=== PATIENT | male | born 1995 | race Caucasian/White ===

== ENCOUNTER 2021-09-17 14:31 | Emergency (ER) | payer OTHER, SELFPAY ==
[2021-09-17 14:35] VITALS: BP 166/94; PULSE 79; RESP 16; O2SAT 100; BMI 22.1
--- NOTE | 2021-09-17 14:43 | XR_ITS ---
WS: [id number] Right hand, 3 views, 09/17/2021 Clinical Data: 5th finger injury Comparison: None. Findings: There is a flexion deformity of the right fifth finger DIP joint. There may be an avulsion fracture with a small fragment at the dorsal aspect of the right fifth finger DIP joint. The remainder of the hand is not remarkable. XR/XR hand RT min 3V* [id number] Impression: Possible small avulsion fracture of the base of the right fifth finger distal p halanx with flexion deformity.
--- NOTE | 2021-09-17 14:44 | ED_ITS ---
HPI - Wound/Laceration General: Chief Complaint: Wound/Laceration Stated Complaint: HAND LAC Time Seen by Provider: 09/17/21 14:39 History of Present Illness: Patient states while he was at work today his right hand little finger got caught between between a table on board with a [employer] chain and a pulled his little finger into the chain. Sustained laceration to fifth fingerand possibly broke. This occurred approximately hour ago. Associated symptoms: Denies chills, fever(s), nausea or vomiting Review of Systems Const: Denies: fever(s), chills or body aches Eyes: Denies: eye discomfort ENMT: Denies: throat pain Card: Denies: chest pain Resp: Denies: dyspnea GI: Denies: abdominal pain, nausea or vomiting Musc: Reports: extremity pain (Right fifth finger occurred at work today), joint pain and limited range of motion Skin/Breast: Denies: rash Neuro: Denies: headache(s) Psych: Denies: depression or suicidal ideation PFS ED PFSH: Social History Smoking and tobacco status: current every day smoker Quit status (tobacco): not considering quitting Second hand smoke exposure: Yes Alcohol intake: never Desire information about alcohol rehabilitation?: No Desire information about substance/drug rehabilitation?: No Physical Exam Const: COMMON NORMALS: no acute distress, patient oriented x3 and alert HENMT: COMMON NORMALS: normocephalic HEAD & SCALP: normocephalic Eye: COMMON NORMALS: EOMs intact bilaterally Neck/C-Spine: COMMON NORMALS: no JVD Resp: COMMON NORMALS: normal respiratory effort and No use of accessory muscles Cardio: COMMON NORMALS: no JVD GI: INSPECTION: Yes normal to inspection Extremity: COMMON NORMALS: normal to inspection and full ROM RIGHT UPPER EXTREMITY: Yes hand & digits (Laceration dorsal surface right DIP, possible mild angulation. Nail intact) Right hand and digits: Yes ROM exam (Unable to extend little finger), Yes neurovascular exam (Intact) and Yes other (Nailbed intact) Neuro: COMMON NORMALS: patient oriented x3 SENSORIUM/ORIENTATION: Yes alert Psych: COMMON NORMALS: mental status grossly normal Skin: COMMON NORMALS: no rashes or lesions noted GENERAL SKIN EXAM: no rashes or lesions noted Procedures Laceration Laceration 1: Site: hand Side (If applicable): right Size (cm): 3 Description: irregular and contaminated Depth: involves tendon Local Anesthetic: bupivacaine 0.5% Amount of anesthesia used (mL): 2 Skin layer closed with: nylon Size (cm): 4-0 Number of sutures: 5 Technique: simple, interrupted Course Vital Signs: Vital signs: Vital Signs Pulse Rate 79 09/17/21 14:35 Respiratory Rate 16 09/17/21 14:35 Blood Pressure 166/94 09/17/21 14:35 Pulse Oximetry 100 09/17/21 14:35 MDM - Wound/Laceration Medical Decision Making Patient has mallet finger -right little finger. Has a laceration to the dorsal aspect which I loosely closed with suture. Does have a small avulsion fracture. I spoke with Dr. Gonsales the hand surgeon at [facility]. She has to go and close a wound provide patient antibiotics place patient aluminum/foam splint and the office will contact with a follow-up appointment. This is a work comp injury. Work comp form was filled out. Lab Data Radiology Impressions Hand X-Ray 09/17/21 14:43 Impression: Possible small avulsion fracture of the base of the right fifth finger distal phalanx with flexion deformity. Discharge Plan Discharge Patient Disposition: Home Clinical Impression: Laceration, Avulsion fracture Flexion deformity of finger joint Qualifiers: Laterality: right Qualified Code(s): M21.241 - Flexion deformity, right finger joints Condition: Stable Prescriptions: New tramadol 50 mg tablet 50 mg PO TID PRN (Reason: pain) Qty: 14 0RF cephalexin 500 mg capsule 500 mg PO Q8H 7 Days Qty: 21 0RF No Action methylprednisolone [Medrol (Paul)] 4 mg tablets,dose pack See Rx Instructions PO PER PKG DIR Qty: 21 0RF Rx Instructions: PO PER PKG DIR Discharge Orders: Discharge ED (Routine); Ordered 09/17/21 Ordered By: Segundo Pradhan Referrals: Americo Flowers MD [Primary Care Provider] - Discharge Diet: Usual diet Discharge Activity: Limit activity as instructed Patient Instructions: Laceration (ED), Opioid Safety Activity Restrictions/Additional Instructions: Follow-up with Dr. Albrecht, the hand surgeon at [facility]. Take medications as prescribed. Wear splint until follow-up by hand surgeon . Change dressing tomorrow and place Vaseline over wound to keep it moist. Can return return to work on light duty and not use the right hand. Sutures will need to be out in 7 days but discuss this with your hand surgeon. Dr. Gonsales's office should contact you with a follow-up appointment time or one will be provided to you by the nurse. 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
[2021-09-17] MEDS: cephALEXin 500 mg Capsule PO (16:11)
[2021-09-17] MEDS: HYDROcodone-acetaminophen 5-325 mg Tablet 1 TAB PO (16:12)
--- NOTE | 2021-09-29 15:46 | DCPLANNER ---
pai gow manager was asked to check on referral to Dr. Albrecht, at [facility]. pai gow manager called to see if an appointment had been scheduled for patient or if the clinic needed more information from the ER. pai gow manager was told that patients information was in the computer, and did not know why an appointment had not been made that a note was being sent to the physician. pai gow manager asked the clinic if they needed any further information from the ER and case management specialist was told that they did not need anything else from the case management specialist.
== END 2021-09-17 16:31 | disposition home or self-care (01) ==
PROVIDERS: Emergency Provider Nurse Practitioner Family; PCP Family Medicine
DX: M21.241 Flexion deformity, right finger joints (principal); S61.216A Laceration without foreign body of right little finger without damage to nail, initial encounter; S92.531A Displaced fracture of distal phalanx of right lesser toe(s), initial encounter for closed fracture; F17.210 Nicotine dependence, cigarettes, uncomplicated; W23.0XXA Caught, crushed, jammed, or pinched between moving objects, initial encounter
CPT/HCPCS: 12002; 73130; 99283; 99291; 99292; J3490

== ENCOUNTER 2021-09-20 17:50 | Emergency (ER) | payer OTHER, SELFPAY ==
[2021-09-20 18:10] VITALS: BMI 22.1
[2021-09-20 18:14] VITALS: BP 142/74; PULSE 77; RESP 16; TEMP 36.9; O2SAT 99
--- NOTE | 2021-09-20 18:16 | W.ED.WOUNDLC ---
HPI - Wound/Laceration General: Chief Complaint: Wound/Laceration Stated Complaint: finger\Cant get bandage off Time Seen by Provider: 09/20/21 18:16 History of Present Illness: 26-year-old male patient comes in today for dressing adhered to wound. Patient was unable to get the dressing off his wound and came in for assistance. Patient appears well. Patient appears no acute distress. Review of Systems General: Reports: 10 or more systems reviewed and unremarkable except in HPI and below Skin/Breast: Reports: other (Healing wound to middle finger right hand) PFSH ED PFSH: Social History Smoking and tobacco status: current every day smoker Quit status (tobacco): not considering quitting Second hand smoke exposure: Yes Alcohol intake: never Desire information about alcohol rehabilitation?: No Desire information about substance/drug rehabilitation?: No Physical Exam Const: COMMON NORMALS: alert Resp: COMMON NORMALS: normal respiratory effort Cardio: COMMON NORMALS: regular rate and regular rhythm RATE: regular rate RHYTHM: regular rhythm Extremity: RIGHT UPPER EXTREMITY: Yes hand & digits (Wound to the little finger right hand) Neuro: SENSORIUM/ORIENTATION: Yes alert Skin: NARRATIVE SKIN EXAM: Healing wound to the little finger of the right hand. Sutures remain intact. Wound appears well approximated. Mild erythema is noted to the wound. Course Vital Signs: Vital signs: Vital Signs Temperature 98.5 F 09/20/21 18:14 Pulse Rate 77 09/20/21 18:14 Respiratory Rate 16 09/20/21 18:14 Blood Pressure 142/74 09/20/21 18:14 Pulse Oximetry 99 09/20/21 18:14 MDM - Wound/Laceration Medical Decision Making Patient comes in today for redressing of wound. Dressing had adhered to the wound and patient could not change at home. Copious amounts of water and hydrogen peroxide was used in order to remove the adhered dressing. Patient tolerated it well. Evaluation of the wound noted a well approximated wound healing. Differential diagnosis includes adhesion of wound, wound infection, laceration finger normal healing. This time appears that patient has good normal hearing of the wound. Continue with routine care. Patient reported understanding. Discharge Plan Discharge Patient Disposition: Home Clinical Impression: Laceration of finger Qualifiers: Encounter type: subsequent encounter Finger: little finger Damage to nail status: without damage Foreign body presence: without foreign body Laterality: right Qualified Code(s): S61.216D - Laceration without foreign body of right little finger without damage to nail, subsequent encounter Condition: Stable Prescriptions: No Action methylprednisolone [Medrol (Paul)] 4 mg tablets,dose pack See Rx Instructions PO PER PKG DIR Qty: 21 0RF Rx Instructions: PO PER PKG DIR tramadol 50 mg tablet 50 mg PO TID PRN (Reason: pain) Qty: 14 0RF cephalexin 500 mg capsule 500 mg PO Q8H 7 Days Qty: 21 0RF Discharge Orders: Discharge ED (Routine); Ordered 09/20/21 Ordered By: Lars Monroe Discharge Diet: Usual diet Discharge Activity: Increase activity as tolerated Patient Instructions: Finger Laceration (ED) Activity Restrictions/Additional Instructions: Continue with routine care. Follow-up with primary care in 2 to 3 days for recheck. Keep wound clean and dry. Return to the ER for new concerns. 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
--- NOTE | 2021-09-20 19:03 | PC.NURSE ---
REPORT GIVEN TO [facility].
[2021-09-20] MEDS: bacitracin ointment Pkt 1 EACH TOPICAL (19:06)
[2021-09-20] MEDS: HYDROcodone-acetaminophen 7.5-325 mg Tablet 1 TAB PO (19:25)
[2021-09-20 19:45] VITALS: BP 138/70; PULSE 74; RESP 18; TEMP 36.9; O2SAT 99
== END 2021-09-20 19:48 | disposition home or self-care (01) ==
PROVIDERS: Emergency Provider Nurse Practitioner Family
DX: Z48.00 Encounter for change or removal of nonsurgical wound dressing (principal); F17.210 Nicotine dependence, cigarettes, uncomplicated
CPT/HCPCS: 99283; A6446